=== PATIENT | male | born 1995 | race Caucasian/White ===

== ENCOUNTER 2016-07-10 13:34 | Emergency (ER) | payer OTHER | END 2016-07-10 13:43 | disposition home or self-care (01) | LOC: ER 13:34 | DX: S50.12XA Contusion of left forearm, initial encounter (principal); S39.92XA Unspecified injury of lower back, initial encounter; V49.60XA Unspecified car occupant injured in collision with unspecified motor vehicles in traffic accident, initial encounter | CPT/HCPCS: 72100; 99284 ==